=== PATIENT | female | born 1990 | race Caucasian/White ===

== ENCOUNTER 2018-08-23 13:36 | Emergency (ER) | payer MEDICAID ==
[2018-08-23] MEDS ORDERED: DEXAMETHASONE SOD PHOSPHATE 10MG/ML VIAL PO ONE (13:40)
[2018-08-23] MEDS ORDERED: IPRATROPIUM/ALBUTEROL (0.5MG/3MG) NEB INH ONE (13:46)
--- NOTE | 2018-08-23 13:46 | Emergency Department Record ---
History of Present Illness - General Stated Complaint: KASANDRA/COUGH Time Seen by Provider: 08/23/18 13:40 Source: Patient Mode of Arrival: Ambulatory Limitations: No limitations - History of Present Illness Initial Comments: 28 yo female presents with three days of cough, congestion, runny nose, sore throat. The cough has been slightly productive. She has a history of asthma as well. No measured fever. She cough when she takes a deep breath. She is a smoker. She is just later for her menstrual cycle and had a positive urine at home. She has been using her Pulmacort and Albuterol. She has a history of lupus. MD Complaint: Cough, Nasal congestion, Rhinorrhea -: Days(s) (3) Severity: Moderate Quality: Aching Consistency: Constant Improves With: Nothing Worsens With: Other (cough) Context: Sick contacts ("everyone" is sick) Associated Symptoms: Cough, Nasal congestion, Rhinorrhea, Shortness of breath Treatments Prior to Arrival: None - Related Data Home Medications Medication Instructions Recorded Confirmed Last Taken Lisdexamfetamine Dimesylate 60 mg PO DAILY 08/23/18 08/23/18 08/22/18 [Vyvanse] Lorazepam [Ativan] 0.5 mg PO ASDIR 08/23/18 08/23/18 Unknown Sumatriptan Succ/Naproxen Sod 1 tab PO ASDIR 08/23/18 08/23/18 08/21/18 [Treximet 10-60 mg Tablet] Previous Rx's Medication Instructions Recorded Azithromycin [Zithromax] 250 mg PO DAILY #4 tab 08/23/18 Oseltamivir Phosphate [Tamiflu] 75 mg PO BID #10 capsule 08/23/18 Allergies Allergy/AdvReac Type Severity Reaction Status Date / Time amoxicillin AdvReac PT UNSURE Verified 08/23/18 13:47 OF REACTION ibuprofen [From Motrin] AdvReac BODY ACHES Verified 08/23/18 13:47 Review of Systems Constitutional: Reports: Chills, Malaise. Denies: Fever Eyes: Denies: Eye discharge, Eye pain, Photophobia, Vision change ENT: Reports: Congestion, Throat pain. Denies: Ear pain Respiratory: Reports: Cough Cardiovascular: Denies: Chest pain, Edema, Palpitations, Syncope Endocrine: Denies: Fatigue Gastrointestinal: Denies: Abdominal pain, Diarrhea, Nausea, Vomiting Genitourinary: Reports: Abnormal menses. Denies: Dysuria Musculoskeletal: Denies: Arthralgia, Myalgia Skin: Denies: Bruising, Change in color, Rash Neurological: Denies: Confusion, Headache Psychiatric: Denies: Anxiety Hematological/Lymphatic: Denies: Blood Clots, Easy bleeding, Easy bruising, Swollen glands Physical Exam - General General Appearance: Alert, Oriented x3, Cooperative, No acute distress Limitations: No limitations - Head Head exam: Atraumatic, Normal inspection - Eye Eye exam: Conjunctival injection. negative: Normal appearance - ENT ENT exam: Normal exam, Mucous membranes moist, Normal orophraynx Ear exam: Normal external inspection Nasal Exam: Discharge (clear, moderate) Mouth exam: Normal external inspection Teeth exam: Normal inspection Throat exam: Normal inspection. negative: Tonsillar erythema, Tonsillomegaly, Tonsillar exudate, R peritonsillar mass, L peritonsillar mass - Neck Neck exam: Normal inspection, Full ROM. negative: Lymphadenopathy, Meningismus , Tenderness - Respiratory Respiratory exam: Rhonchi (few scattered), Wheezes (very mild). negative: Accessory muscle use, Prolonged expiratory - Cardiovascular Cardiovascular Exam: Regular rate, Normal rhythm, Normal heart sounds - GI/Abdominal GI/Abdominal exam: Soft. negative: Tenderness - Rectal Rectal exam: Deferred - exam: Deferred - Extremities Extremities exam: Normal inspection - Back Back exam: Denies: CVA tenderness (R), CVA tenderness (L) - Neurological Neurological exam: Alert, Oriented X3 - Psychiatric Psychiatric exam: Normal affect, Normal mood - Skin Skin exam: Dry, Intact, Normal color, Warm Course - Reevaluation(s) Reevaluation #1: The vitals were reviewed. No fever or hypoxia. The BP is in her normal range compare to [facility] office visits (range 89-110 systolic) 08/23/18 14:15 08/23/18 14:27 The Influenza are negative The UCG is positive 08/23/18 14:35 I explained the negative influenza may not be reliable. She has clinic findings highly suggestive of the influenza during this time of year with many local patients with influenza. She is but I recommend treatment given Tamiflu is safe in . She will be treated with Zithromax as well given her productive cough. He is not hypoxic. I do not recommend a CXR with her early given no fever, not ill appearing, no hypoxia. Disposition Disposition: Discharge Clinical Impression: Bronchitis, Disposition: Home, Self-Care Condition: (1) Good Instructions: Acute Bronchitis (ED), Influenza (ED) Additional Instructions: Take the prescriptions as directed Call your doctor and your OB Saturday to discuss your early and your medications going forward Be seen or return if worse, fever, or any new concerns. Prescriptions: Azithromycin [Zithromax] 250 mg PO DAILY #4 tab Oseltamivir Phosphate [Tamiflu] 75 mg PO BID #10 capsule Quality - Quality Measures Quality Measures: N/A - Blood Pressure Screening Does Patient Have Any of the Following: No Blood Pressure Classification: Normal BP Reading Systolic Measurement: 94 Diastolic Measurement: 57 Screening for High Blood Pressure: < Normal BP, F/U Not Required > [G8783]
[2018-08-23 14:26] LABS: INFLUENZA A NEGATIVE (NEGATIVE); INFLUENZA B NEGATIVE (NEGATIVE)
[2018-08-23] MEDS ORDERED: AZITHROMYCIN 500 MG TABLET PO ONE (14:31)
[2018-08-23] MEDS ORDERED: OSTELTAMIVIR 75 MG CAP PO ONE (14:31)
== END 2018-08-23 14:51 | disposition home or self-care (01) ==
LOC: ER 13:36
DX: J20.9 Acute bronchitis, unspecified (principal); J02.9 Acute pharyngitis, unspecified; R06.00 Dyspnea, unspecified; F17.210 Nicotine dependence, cigarettes, uncomplicated; Z33.1 Pregnant state, incidental
CPT/HCPCS: 99283 ×2; 81025; 87400; 94640; J1100

== ENCOUNTER 2018-12-16 18:39 | Emergency (ER) | payer MEDICAID ==
--- NOTE | 2018-12-16 19:13 | Emergency Department Record ---
History of Present Illness - General Chief complaint: Lower Extremity Pain Stated complaint: LT FOOT BIG TOE PAIN Time Seen by Provider: 12/16/18 19:11 Source: Patient Mode of Arrival: Ambulatory Limitations: No limitations - History of Present Illness Initial comments: 28 yo female at 27 weeks presents to ED for evaluation of pain to the left toe, denies injury, but reports that her toe is "leaking". Patient denies fevers, chills, or recent illness, but does report that she has intermittent "leaking from her vagina as well". Patient reports that she has seen Dr. Orellana previously, however she sanchez not mentioned any "leaking" previously. Patient reports that she was recently taken off many of her chronic pain medications as well due to her . MD Complaint: Extremity pain Onset/Timin -: Days(s) Location: Left, Foot History of Same: No Radiation: None Consistency: Intermittent Improves with: Nothing Worsens with: Nothing Associated Symptoms: Denies other symptoms - Related Data Previous Rx's Medication Instructions Recorded Azithromycin [Zithromax] 250 mg PO DAILY #4 tab 08/23/18 Oseltamivir Phosphate [Tamiflu] 75 mg PO BID #10 capsule 08/23/18 Allergies Allergy/AdvReac Type Severity Reaction Status Date / Time amoxicillin AdvReac PT UNSURE Verified 12/16/18 19:04 OF REACTION ibuprofen [From Motrin] AdvReac BODY ACHES Verified 12/16/18 19:04 Travel Screening - Travel/Exposure Within Last 30 Days Have you traveled within the last 30 days?: No - Travel/Exposure Within Last Year Have you traveled outside the [place] in the last year?: No - Additonal Travel Details Have you been exposed to anyone with a communicable illness?: No - Travel Symptoms Symptom Screening: None Review of Systems Constitutional: Denies: Chills, Fever, Malaise, Night sweats Eyes: Denies: Eye discharge, Eye pain ENT: Denies: Congestion, Ear pain, Epistaxis Respiratory: Denies: Cough, Dyspnea Cardiovascular: Denies: Chest pain, Dyspnea on exertion Endocrine: Denies: Fatigue, Heat or cold intolerance Gastrointestinal: Denies: Abdominal pain, Nausea, Vomiting Genitourinary: Reports: Discharge. Denies: Incontinence, Retention Musculoskeletal: Denies: Arthralgia, Back pain, Gout, Joint swelling Skin: Denies: Bruising, Change in color Neurological: Denies: Abnormal gait Psychiatric: Reports: Anxiety Hematological/Lymphatic: Denies: Anemia, Blood Clots Past Medical History - SOCIAL HISTORY Smoking Status: Current every day smoker Alcohol Use: None Drug Use: Occasional Drug Use Detail:: Opiates - RESPIRATORY Hx Respiratory Disorders: Yes Hx Asthma: Yes - CARDIOVASCULAR Hx Cardio Disorders: No - NEURO Hx Neuro Disorders: No - GI Hx GI Disorders: No - Hx Genitourinary Disorders: No - ENDOCRINE Hx Endocrine Disorders: No - MUSCULOSKELETAL Hx Musculoskeletal Disorders: Yes Comment:: lupus - PSYCH Hx Psych Problems: Yes Hx Anxiety: Yes - HEMATOLOGY/ONCOLOGY Hx Hematology/Oncology Disorders: No Family Medical History Any Significant Family History?: No Hx Diabetes: Grandparents Physical Exam - General General Appearance: Alert, Oriented x3, Cooperative, Moderate distress, Anxious, Other (patient is crying on examination, exhibits flight of ideas on examinatio n.) Limitations: No limitations - Head Head exam: Atraumatic, Normocephalic, Normal inspection Head exam detail: negative: Abrasion, Contusion, Navarro's sign, General tenderness, Hematoma - Eye Eye exam: Normal appearance. negative: Conjunctival injection, Periorbital sw elling, Periorbital tenderness - ENT ENT exam: Normal exam Ear exam: Normal external inspection Nasal Exam: negative: Active bleeding, Discharge, Dried blood, Foreign body Mouth exam: negative: Drooling, Laceration, Muffled voice, Tongue elevation - Neck Neck exam: Normal inspection. negative: Meningismus, Tenderness - Respiratory Respiratory exam: Normal lung sounds bilaterally. negative: Respiratory d istress, Rhonchi, Stridor, Wheezes - Cardiovascular Cardiovascular Exam: Regular rate, Normal rhythm, Normal heart sounds - GI/Abdominal GI/Abdominal exam: Soft, Other (Gravid uterus). negative: Pulsatile mass, Rebound, Rigid - Rectal Rectal exam: Deferred - exam: Deferred - Extremities Extremities exam: Normal inspection. negative: Pedal edema, Tenderness - Back Back exam: Denies: CVA tenderness (R), CVA tenderness (L) - Neurological Neurological exam: Alert, Normal gait, Oriented X3 - Psychiatric Psychiatric exam: Anxious - Skin Skin exam: Normal color. negative: Abrasion Type of lesion: negative: abrasion Course Vital Signs 12/16/18 19:05 Temperature 98.2 F Pulse Rate 121 H Respiratory 20 Rate Blood Pressure 119/73 Pulse Ox 100 - Reevaluation(s) Reevaluation #1: 12/16/18 19:20 History is difficulty due to patient's flight of ideas Initially patient described toe pain and leaking, Nursing staff reports that the patient is reporting "leaking from the vagina" as well. Patient confirms this however has difficulty answering questions on examination. Patient reports that she is withdrawing from her pain medications that were not renewed by her OB. Patient does report taking [place] x 2 today. Will initiate transfer to [facility] for OB evaluation. 12/16/18 19:[address] Godinez. Will call OB resident for further recommendations Re: transfer for evaluation. Reevaluation #2: 12/16/18 19:39 Case was discussed with Dr. Godinez, will accept patient at OB triage at [facility] for further OB evaluation. Disposition Disposition: Transfer Clinical Impression: Vaginal discharge during Qualifiers: Trimester: third trimester Qualified Code(s): O26.893 - Other specified related conditions, third trimester Disposition: Acute Care Hospital Transfer Transfer To: [facility] Reason For Transfer: OB evaluation Accepting Physician: Herbert Time Discussed w/Accepting Physician: 19:39 Condition: (2) Stable Forms: Patient Portal Access Time of Disposition: 19:39 Quality - Quality Measures Quality Measures: N/A - Blood Pressure Screening Does Patient Have Any of the Following: No Blood Pressure Classification: Normal BP Reading Systolic Measurement: 119 Diastolic Measurement: 73 Screening for High Blood Pressure: < Normal BP, F/U Not Required > [G8783]
--- NOTE | 2018-12-18 08:10 | RADIOLOGY REPORT ---
EXAM: LEFT GREAT TOE, THREE VIEWS HISTORY: LEFT GREAT TOE PAIN. NO REPORTED INJURY. TECHNIQUE: Three views of the left great toe were obtained. Comparison: None. FINDINGS: There is no bone or joint abnormality. No radiopaque foreign body is identified. IMPRESSION: NEGATIVE LEFT GREAT TOE EXAMINATION. JOB NUMBER: [id number] MTDD
== END 2018-12-16 19:50 | disposition short-term general hospital (02) ==
LOC: ER 18:39
DX: O26.892 Other specified pregnancy related conditions, second trimester (principal); O09.892 Supervision of other high risk pregnancies, second trimester; M79.675 Pain in left toe(s); N89.8 Other specified noninflammatory disorders of vagina; O99.332 Smoking (tobacco) complicating pregnancy, second trimester; F17.210 Nicotine dependence, cigarettes, uncomplicated; Z3A.27 27 weeks gestation of pregnancy
CPT/HCPCS: 73660; 99285

== ENCOUNTER 2019-03-20 23:31 | Emergency (ER) | payer MEDICAID ==
--- NOTE | 2019-03-20 23:55 | Emergency Department Record ---
History of Present Illness - General Chief complaint: Abscess Stated complaint: boil on head Time Seen by Provider: 03/20/19 23:36 Source: Patient, Family (mother) Mode of Arrival: Ambulatory Limitations: No limitations - History of Present Illness Initial comments: Pt with large abscess ot left temporal area. Pt has hx of similar in past. No DM. Recetn post one week ago. Nursing baby. No Fever. Onset/Timin -: Days(s) Severity scale (1-10): 7 Consistency: Constant Improves with: None Worsens with: None Context: None Associated symptoms: Denies other symptoms Treatments Prior to Arrival: Attempted to drain pus at home - Related Data Home Medications Medication Instructions Recorded Confirmed Last Taken Docusate Sodium [Colace] 100 mg PO BID 03/20/19 03/20/19 Unknown Ibuprofen [Ibu] 1 tab PO Q6HR PRN 03/20/19 03/20/19 Unknown Ketorolac Tromethamine 10 mg PO QID 03/20/19 03/20/19 Unknown Allergies Allergy/AdvReac Type Severity Reaction Status Date / Time amoxicillin AdvReac PT UNSURE Verified 03/20/19 23:34 OF REACTION ibuprofen [From Motrin] AdvReac BODY ACHES Verified 03/20/19 23:34 Travel Screening - Travel/Exposure Within Last 30 Days Have you traveled within the last 30 days?: No - Travel/Exposure Within Last Year Have you traveled outside the [place] in the last year?: No - Additonal Travel Details Have you been exposed to anyone with a communicable illness?: No - Travel Symptoms Symptom Screening: None Review of Systems Constitutional: Denies: Chills, Fever Eyes: Denies: Eye discharge, Photophobia ENT: Denies: Congestion, Ear pain Respiratory: Denies: Cough Cardiovascular: Denies: Arrhythmia, Syncope Endocrine: Denies: Fatigue Gastrointestinal: Denies: Abdominal pain, Nausea, Vomiting Skin: Reports: As per HPI Neurological: Denies: Headache Psychiatric: Denies: Anxiety Hematological/Lymphatic: Denies: Anemia Past Medical History - SOCIAL HISTORY Smoking Status: Current every day smoker Alcohol Use: Rare Drug Use: Heavy Drug Use Detail:: Marijuana - RESPIRATORY Hx Respiratory Disorders: Yes Hx Asthma: Yes - CARDIOVASCULAR Hx Cardio Disorders: No - NEURO Hx Neuro Disorders: No - GI Hx GI Disorders: No - Hx Genitourinary Disorders: No - ENDOCRINE Hx Endocrine Disorders: No - MUSCULOSKELETAL Hx Musculoskeletal Disorders: Yes Comment:: lupus - PSYCH Hx Psych Problems: Yes Hx Anxiety: Yes - HEMATOLOGY/ONCOLOGY Hx Hematology/Oncology Disorders: No Family Medical History Any Significant Family History?: No Hx Diabetes: Grandparents Physical Exam - General General Appearance: Alert, Oriented x3, Cooperative, No acute distress - Head Head exam: Atraumatic, Other (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 Pointing but not draining. Local erythema. ) - Eye Eye exam: Normal appearance, PERRL, EOMI - ENT ENT exam: Mucous membranes moist, Normal orophraynx Nasal Exam: Normal inspection Mouth exam: Normal external inspection - Neck Neck exam: Normal inspection, Full ROM. negative: Lymphadenopathy - Respiratory Respiratory exam: Normal lung sounds bilaterally. negative: Respiratory distress - Cardiovascular Cardiovascular Exam: Regular rate, Normal rhythm - Extremities Extremities exam: Normal inspection - Neurological Neurological exam: Alert, Normal gait, Oriented X3 - Psychiatric Psychiatric exam: Normal affect, Normal mood - Skin Skin exam: Normal color. negative: Rash Type of lesion: Abscess (as above. ) Course Vital Signs 03/20/19 23:40 Temperature 98.7 F Pulse Rate 88 Respiratory 20 Rate Blood Pressure 114/60 Pulse Ox 99 - Reevaluation(s) Reevaluation #1: 03/20/19 23:58 seen and I&D done Procedures - Incision and Drainage Site: right temporal face Blade Size: 11 (Alcohol prep to site, 1% lido without 1.5 cc local. #11 blade stab incision with return of 8cc purulent brown material. Irrigated with 10cc NS on angiocath. Applied 2x2 dressing. Tolerated well. No packing) Disposition Disposition: Discharge Clinical Impression: Abscess of face Disposition: Home, Self-Care Condition: (2) Stable Instructions: Abscess Incision and Drainage (ED), Abscess (ED) Additional Instructions: Warm compress. Stop Amox. Take Keflex as directed. Recheck family doctor in 2 days return to the ED as needed. Forms: Patient Portal Access Time of Disposition: 23:53 Quality - Quality Measures Quality Measures: N/A - Blood Pressure Screening Does Patient Have Any of the Following: No Blood Pressure Classification: Normal BP Reading Systolic Measurement: 114 Diastolic Measurement: 60 Screening for High Blood Pressure: < Normal BP, F/U Not Required > [U9814] Pre-Hypertensive Follow-up Interventions: Follow-up with rescreen every year.
== END 2019-03-20 23:58 | disposition home or self-care (01) ==
LOC: ER 23:31
DX: L02.01 Cutaneous abscess of face (principal); F17.210 Nicotine dependence, cigarettes, uncomplicated
CPT/HCPCS: 10060; 99284